=== PATIENT | male | born 1980 | race Caucasian/White ===

== ENCOUNTER 2017-01-19 20:00 | Emergency (ER) | payer OTHER ==
--- NOTE | ~2017-01-19 | CR63 ---
[facility] A Service of [facility] & [facility] RADIOLOGY TEXT RESULTS PATIENT: DEJAH BAEZA LOCATION: CFTX : 84 UNIT #: [id number] AGE: [address]: Naomi Wills APRN SEX: M ORDER DR: [id number] [facility] [address] [facility]. [place], [place] [address] [id number] MR#: [id number] Acc #: [id number] NAME: DEJAH BAEZA : 1980 SEX: M STUDY DATE/TIME: 01/19/2017 19:38 UNIT: [facility] ROOM: STUDY DESCRIPTION: CR Chest 2 View Attending Physician: Naomi Wills A.P.R.N. Ordering Physician: Lesa Sue P.A.-C. Primary Care Physician: Álvaro Singh M.D. MEDICAL IMAGING REPORT This report is preliminary unless electronic signature is present EXAM Two-view chest HISTORY Shortness of air cough, congestion and fever x1 week. FINDINGS PA and lateral examination of the chest upright shows a good expansion of the parenchyma with a normal distribution of the pulmonary vascularity. There is no indication of congestion, effusion, infiltrate, tumor, or nodular density. The pleural reflections and diaphragmatic contours are normal. The cardiac silhouette and mediastinal anatomy is within normal limits. IMPRESSION Normal chest. Dictated by... Emilee Neal M.D. THIS IS AN ELECTRONICALLY VERIFIED REPORT Emilee Neal M.D. at 01/20/2017 8:43 PM Keyur TD: 01/20/2017 10:13 JOB #: [id number] MEDICAL IMAGING REPORT COPY
[2017-01-19 19:10] LABS: INFLUENZA A POS (NEG); INFLUENZA B NEG (NEG)
== END 2017-01-19 20:15 | disposition home or self-care (01) ==
LOC: CFTX 20:00
PROVIDERS: Physician Assistant
DX: J10.1 Influenza due to other identified influenza virus with other respiratory manifestations (principal); J44.9 Chronic obstructive pulmonary disease, unspecified; F17.210 Nicotine dependence, cigarettes, uncomplicated; Z88.0 Allergy status to penicillin; Z88.1 Allergy status to other antibiotic agents; Z88.8 Allergy status to other drugs, medicaments and biological substances
CPT/HCPCS: 71020; 87804; 94640; 99284

== ENCOUNTER 2017-07-07 12:19 | Emergency (ER) | payer OTHER | END 2017-07-07 13:20 | disposition left against medical advice (07) | LOC: CED 12:19 | DX: Z53.21 Procedure and treatment not carried out due to patient leaving prior to being seen by health care provider (principal) ==